=== PATIENT | female | born 1975 | race Caucasian/White ===

== ENCOUNTER 2017-02-13 16:42 | Inpatient (IN) | payer OTHER ==
[~2017-02-13] VITALS: Ht 154.9 cm; Wt 69.5 kg
[~2017-02-13 16:42] MED LIST: ATIVAN0.5 MG PO; CIPRO HC OTIC S10 ML BOTH EARS; DYMISTA NASAL S23 GM BOTH NARES; FLONASE16 G1 BOTH NARES; LISINOPRIL5 MG PO; MICROGESTIN FE1 EAC1 PO; PERCOCET 5/31 TABLET PO; ZOFRAN4 MG PO
[2017-02-13 20:01] LABS: HEMATOCRIT 43.3 % (36.0-46.0); MCH 30.2 PG (29.0-34.0); MCHC 33.9 G/DL (30.0-36.0); MCV 89.1 FL (83-99); MEAN PLAT.VOLUME 9.5 uM^3 (9.5-12.4); PLATELET COUNT 333 K/uL (156-360); RBC DIS.WIDTH-SD 39.6 % (39-53); RED BLOOD COUNT 4.86 M/uL (3.80-5.20); WHITE BLOOD COUNT 15.5 K/uL (4.1-10.2)
[2017-02-13 20:15] LABS: CHLORIDE 108 mEq/L (99-109); POTASSIUM 4.6 mEq/L (3.7-5.4); SODIUM 141 mEq/L (136-147)
[2017-02-13 20:17] LABS: GLUCOSE 91 mg/dL (70-99)
[2017-02-13 20:18] LABS: ANION GAP 12 MEQ/L (2-14)
[2017-02-13 20:20] LABS: GFR ESTIMATE (CALCULATED) > 59 mL/min/
[2017-02-13 20:21] LABS: UREA NITROGEN (BUN) 8 mg/dL (9-23)
[2017-02-13] MEDS ORDERED: CIPRO HC OTIC S10 ML RIGHT EAR (20:21)
[2017-02-13] MEDS ORDERED: MOTRIN800 MG PO (20:21)
[2017-02-13] MEDS ORDERED: ZOFRAN ODT4 MG PO (20:23)
[2017-02-13 20:30] LABS: QUANTITATIVE HCG < 4.0 MIU/ML
[2017-02-14] MEDS ORDERED: LEVAQUIN500 MG PO (00:48)
[2017-02-14 04:00] VITALS: BP 170/104
[2017-02-14 07:21] VITALS: BP 135/86
[2017-02-14 11:07] VITALS: BP 140/91
[2017-02-14 16:27] VITALS: BP 141/72
[2017-02-14 20:28] VITALS: BP 146/89
[2017-02-14 23:24] VITALS: BP 143/93
[2017-02-15 03:50] VITALS: BP 138/85
[2017-02-15 08:08] VITALS: BP 122/55
[2017-02-15 08:40] LABS: EOSINOPHIL (%) 0.1 % (0-5); HEMATOCRIT 36.4 % (36.0-46.0); IMMATURE GRANULOCYTE (%) 0.4 % (0.0-0.7); IMMATURE GRANULOCYTE COUNT 0.1 K/uL; INSTRUMENT ABS NEUTROPHIL CT 10.9 K/uL; LYMPHOCYTE COUNT 2.4 K/uL (1.0-2.8); MCH 30.2 PG (29.0-34.0); MCHC 33.8 G/DL (30.0-36.0); MCV 89.4 FL (83-99); MEAN PLAT.VOLUME 9.7 uM^3 (9.5-12.4); MONOCYTE COUNT 1.2 K/uL (0-0.8); NEUTROPHIL (%) 74.7 % (45-76); NEUTROPHIL COUNT 10.9 K/uL (1.8-6.4); PLATELET COUNT 297 K/uL (156-360); RBC DIS.WIDTH-CV 12.1 % (11.8-14.6); RBC DIS.WIDTH-SD 39.8 % (39-53); RED BLOOD COUNT 4.07 M/uL (3.80-5.20); WHITE BLOOD COUNT 14.6 K/uL (4.1-10.2)
[2017-02-15 09:05] LABS: ANION GAP 8 MEQ/L (2-14); CHLORIDE 107 MEQ/L (99-109); GFR ESTIMATE (CALCULATED) > 59 mL/min/; SAMPLE HEMOLYSIS CHECK 0; SAMPLE ICTERIC CHECK 0; SAMPLE LIPEMIA CHECK 0; SODIUM 137 MEQ/L (136-147); UREA NITROGEN (BUN) 6 mg/dL (9-23)
[2017-02-15 09:14] LABS: GLUCOSE 118 mg/dL (70-99); POTASSIUM 3.6 MEQ/L (3.7-5.4)
[2017-02-15 11:30] VITALS: BP 135/67
[2017-02-15 16:12] VITALS: BP 141/87
[2017-02-15 20:52] VITALS: BP 149/85
[2017-02-15 23:47] VITALS: BP 167/91
[2017-02-16] VITALS (7 sets, daily range): BP systolic 143–171; BP diastolic 84–101
[2017-02-16 06:56] LABS: EOSINOPHIL (%) 0 % (0-5); HEMATOCRIT 37.4 % (36.0-46.0); IMMATURE GRANULOCYTE COUNT 0.2 K/uL; INSTRUMENT ABS NEUTROPHIL CT 14.4 K/uL; MCH 31.4 PG (29.0-34.0); MCHC 34.5 G/DL (30.0-36.0); MEAN PLAT.VOLUME 10.4 uM^3 (9.5-12.4); MONOCYTE (%) 2.9 % (3-12); MONOCYTE COUNT 0.5 K/uL (0-0.8); NEUTROPHIL (%) 89.9 % (45-76); NEUTROPHIL COUNT 14.4 K/uL (1.8-6.4); PLATELET COUNT 322 K/uL (156-360); RBC DIS.WIDTH-CV 12.1 % (11.8-14.6); RBC DIS.WIDTH-SD 40.2 % (39-53); RED BLOOD COUNT 4.11 M/uL (3.80-5.20)
[2017-02-16 07:19] LABS: ANION GAP 11 MEQ/L (2-14); CHLORIDE 106 MEQ/L (99-109); GFR ESTIMATE (CALCULATED) > 59 mL/min/; GLUCOSE 170 mg/dL (70-99); POTASSIUM 4.2 MEQ/L (3.7-5.4); SAMPLE HEMOLYSIS CHECK 0; SAMPLE ICTERIC CHECK 0; SAMPLE LIPEMIA CHECK 0; SODIUM 139 MEQ/L (136-147); UREA NITROGEN (BUN) 9 mg/dL (9-23)
[2017-02-17 08:43] VITALS: BP 168/98
[2017-02-17] MEDS ORDERED: CORTISPORI200 DROPS/ RIGHT EAR (11:04)
[2017-02-17] MEDS ORDERED: LEVAQUIN500 MG PO (11:04)
[2017-02-17] MEDS ORDERED: PREDNISONE10 MG PO (11:05)
== END 2017-02-17 12:28 | disposition home or self-care (01) | DRG 603 ==
LOC: EME 16:42 → ENRESERV 02-14 02:56 → EDOF 02-14 03:11 → 5EAST 02-14 03:11 → ENRESERV 02-14 03:11 → 5EAST 02-14 03:51
PROVIDERS: Family Medicine; Nurse Practitioner Family
DX: L03.211 Cellulitis of face (principal); Z91.19 Patient's noncompliance with other medical treatment and regimen; I15.9 Secondary hypertension, unspecified; E78.5 Hyperlipidemia, unspecified; H60.91 Unspecified otitis externa, right ear; J30.9 Allergic rhinitis, unspecified; E87.6 Hypokalemia; N76.0 Acute vaginitis; H65.191 Other acute nonsuppurative otitis media, right ear; R73.9 Hyperglycemia, unspecified
CPT/HCPCS: 70487; 80048; 83605; 84702; 85025; 85027; 87040; 93005; 99281; 99285; J1100; J1170; J1885; J1956; J2270; J2405; J2930; J7030